=== PATIENT | male | born 1975 | race Caucasian/White ===

== ENCOUNTER → 2017-10-17 07:49 | Outpatient (POV) | payer MEDICAID, SELFPAY | PROVIDERS: Family Provider Family Medicine; PCP Family Medicine; Visit Provider Otolaryngology | DX: Z00.00 Encounter for general adult medical examination without abnormal findings (principal) ==

== ENCOUNTER → 2018-08-24 10:57 | Outpatient (CLI) | payer MEDICAID, SELFPAY ==
--- NOTE | 2018-08-24 11:04 | XR_ITS ---
XR KUB Ordering Physician: Trini Rodgers APRN Patient Age: 43 years: Male HISTORY: ITS.REASON: LT FLANK PAIN TECHNIQUE: AP supine abdomen COMPARISON : FINDINGS Ill-defined faint stippled calcifications projected over the right upper quadrant could be related to stool within the hepatic flexure although I am suspect of gallstones. This area pain stippled calcifications spans 5 cm 2.5 cm wide.. No previous studies of this area. The this area projected also over the mid right kidney but doubt renal calculi or renal pathology...] RUQ ultrasound or CT abdomen suggested to evaluate for gallstones and to better better exclude a unlikely partially calcified renal mass lesion. Kidneys otherwise with normal contour. With no definitive calculi in either kidney nor along the course of either ureter. The history of left flank pain. Small phleboliths are seen at the pelvic basin but no definitive ureteral stone appreciated. There is a small density projecting over the left pelvis but I believe is related to vascular calcification. . The bowel gas pattern is otherwise nonspecific with negligible gas in small bowel. [id number] stool throughout the remainder the colon most evident at flexures. IMPRESSION...... 1. There is a of faint stippled calcification at the RUQ-favor most likely reflects gallstones, or possibly stippled calcification within stool at the hepatic flexure. (Also note This faint stipple calcification feature is projected over mid right kidney but I do not believe is related to kidney.) I would suggest ultrasound RUQ to further evaluate for gallstones. Or if left flank pain progresses a CT the abdomen//stone study to evaluate for all above features 2. Regarding left flank pain I see no definitive calculi at the left kidney nor along the course of the left ureter. Only small phleboliths at the lower left pelvic basin
[2018-08-24 11:49] LABS: Basophils # 0.1 K/mm3 (0-0.2); Basophils % 0.7 % (0.1-2.0); Eosinophils # 0.2 K/mm3 (0.0-0.4); Eosinophils % 2.7 % (0.1-12.0); Hematocrit 43.4 % (42.0-52.0); Hemoglobin 15.4 g/dL (14.1-18.0); Lymphocytes # 2.5 K/mm3 (0.7-4.5); Lymphocytes % 28.2 % (10-50); Mean Corpuscular HGB Conc 35.4 g/dL (31.8-35.4); Mean Corpuscular Volume 81.8 fl (80-94); Mean Platelet Volume 7.1 fl (7.4-10.4); Monocytes # 0.3 K/mm3 (0.1-1.0); Monocytes % 3.8 % (1.7-9.3); Neutrophils # 5.7 K/mm3 (1.8-7.8); Neutrophils % 64.6 % (37.0-80.0); Platelet Count 348 K/mm3 (142-424); Red Cell Distribution Width 13.2 % (11.5-17.5); White Blood Count 8.8 K/mm3 (4.8-10.8)
[2018-08-24 12:41] LABS: Alanine Aminotransferase 110 U/L (12-78); Albumin Level 3.7 gm/dL (3.4-5.0); Alkaline Phosphatase 172 U/L (46-116); Amylase 26 U/L (25-115); Anion Gap 13.1 mEq/L (5-15); Aspartate Amino Transferase 58 U/L (15-37); Bilirubin,Total 0.6 mg/dL (0.2-1.0); Blood Urea Nitrogen 10 mg/dL (7-18); Calcium 9.4 mg/dL (8.5-10.1); Carbon Dioxide 29 mmol/L (21.0-32.0); Chloride 102 mmol/L (98-107); Creatinine,Serum 1.02 mg/dL (0.70-1.30); Estimated Glomerular Filt Rate 80 ml/min (>60); GFR (African American) 97 ML/MIN (>60); Globulin 3.6 gm/dl (1.3-3.2); Glucose 149 mg/dL (74-106); Lipase 138 u/L (73-393); Potassium 4.1 mmoL/L (3.5-5.1); Sodium 140 mmol/L (136-145); Total Protein,Serum 7.3 gm/dL (6.4-8.2)
== END ==
PROVIDERS: PCP Family Medicine; Visit Provider Nurse Practitioner Family
DX: R10.9 Unspecified abdominal pain (principal); R10.10 Upper abdominal pain, unspecified
CPT/HCPCS: 36415; 74018; 80053; 82150; 83690; 85025

== ENCOUNTER → 2018-08-29 09:16 | Outpatient (CLI) | payer MEDICAID, SELFPAY ==
--- NOTE | 2018-08-29 09:19 | US_ITS ---
US abdomen limited History:Right upper quadrant pain and elevated liver enzymes Ordering Physician:Trini Rodgers APRN Patient Age: 43 years Comparison:None Findings: Pancreas:Unremarkable. No obvious mass or abnormal fluid collection. No ductal dilatation Liver:Liver. No focal liver lesions demonstrated. Right Kidney:Unremarkable. Normal size and echogenicity. No hydronephrosis Gallbladder:There are multiple gallstones. No gallbladder wall thickening, pericholecystic fluid, or biliary dilatation is evident. Impression: 1. Multiple gallstones. 2. Fatty liver
== END ==
PROVIDERS: PCP Nurse Practitioner Family; Visit Provider Nurse Practitioner Family
DX: R10.11 Right upper quadrant pain (principal); R74.8 Abnormal levels of other serum enzymes
CPT/HCPCS: 76705

== ENCOUNTER → 2018-09-12 10:30 | Outpatient (CLI) | payer MEDICAID, SELFPAY ==
--- NOTE | 2018-09-12 10:45 | CT_ITS ---
CT abdomen pelvis wo/w con CLINICAL INDICATION: Left lower quadrant pain, right upper quadrant pain, left flank pain ITS.REASON: LT FLANK PAIN,GALLSTONES,RUQ PAIN ORDERING PHYSICIAN: Trini Rodgers APRN PATIENT AGE: 43 years COMPARISON: None TECHNIQUE: Axial images obtained without and with contrast with sagittal and coronal reformats. All CT scans at the facility use one or more dose reduction, viz: automated exposure control, ma/kV adjustment per patient size (including targeted exams where dose is matched to indication, i.e. head), or iterative reconstruction technique. PROCEDURE: Oral Contrast: Redicat IV Contrast: 75 mL's Optiray 350. FINDINGS: Lower thorax: No acute finding Fatty liver. No focal liver lesions evident. There are multiple gallstones within a mildly distended gallbladder. The spleen, adrenal glands, pancreas, and the kidneys have an unremarkable appearance. No intestinal obstruction or free air. Unremarkable appendix. Scattered diverticula are present in the descending and sigmoid colon. No evidence of diverticulitis. No pelvic mass abnormal fluid collection or focal inflammatory change of the pelvis. No abdominal wall hernia. No acute bony findings. IMPRESSION: 1. Cholelithiasis with mildly distended gallbladder. 2. Colonic diverticulosis. No evidence of diverticulitis. 3. Fatty liver
== END ==
PROVIDERS: PCP Family Medicine; Visit Provider Nurse Practitioner Family
DX: R10.11 Right upper quadrant pain (principal); R10.9 Unspecified abdominal pain; K80.20 Calculus of gallbladder without cholecystitis without obstruction
CPT/HCPCS: 74178; Q9967